=== PATIENT | female | born 1975 ===

== ENCOUNTER 2021-06-30 15:57 | Outpatient (CLI) | payer OTHER ==
[~2021-06-30 15:57] MED LIST: ALBUTEROL17 GM IH; OMEGA-31000 MG PO; PRENATAL1 TAB PO; ZYRTEC5 MG; [UNRECOGNIZED DRUG - OTHER]
== END 2021-06-30 16:08 | disposition home or self-care (01) ==
LOC: RAD 15:57
PROVIDERS: ATTEND Orthopaedic Surgery
DX: M25.561 Pain in right knee (principal); M25.562 Pain in left knee; M25.572 Pain in left ankle and joints of left foot